=== PATIENT | female | born 1985 | race Caucasian/White ===

== ENCOUNTER → 2020-02-23 14:13 | Outpatient (CLI) | payer OTHER, SELFPAY ==
--- NOTE | ~2020-02-23 | US_ITS ---
EXAMINATION: US axilla RT INDICATION: Right axillary mass TECHNIQUE: Targeted ultrasound of the right axilla was performed. COMPARISON: None available FINDINGS: No suspicious cystic or solid mass is identified in the area of clinical concern. IMPRESSION: 1. No specific sonographic correlate is identified for the reported palpable abnormality of concern. Further evaluation at this time should be based on clinical assessment. Continued follow-up physical examination is recommended. BI-RADS Category 1: Negative Reviewed, dictated and finalized at location A. IMPRESSION: 1. No specific sonographic correlate is identified for the reported palpable ab normality of concern. Further evaluation at this time should be based on clinic al assessment. Continued follow-up physical examination is recommended. BI-RADS Category 1: Negative
== END ==
PROVIDERS: PCP Family Medicine; Visit Provider Nurse Practitioner
DX: R22.30 Localized swelling, mass and lump, unspecified upper limb (principal)
CPT/HCPCS: 76882

== ENCOUNTER 2020-05-19 08:36 | Outpatient (CLI) | payer OTHER, SELFPAY ==
[2020-05-19 09:12] LABS: Add Urine Microscopic? YES; Appearance Urine Clear (Clear); Bacteria Urine Trace /hpf; Bilirubin Urine Negative (Negative); Blood Urine 1+ (Negative); Color Urine Colorless (Yellow); Glucose Urine UA Negative (Negative); Ketones Urine Negative (Negative); Leukocyte Esterase Ur Negative LEU/UL (Negative); Mucus Urine Rare /lpf; Nitrate Urine Negative (Negative); Protein Urine Negative (Negative); RBC Urine 0-2 /hpf (0-2); Squamous Epithelial Cell Urine Occasional /hpf (Few); Urobilinogen Urine Negative mg/dL (<2.0); WBC Urine 0-3 /hpf
[2020-05-19 09:13] LABS: Specific Grav Ur 1.004 (1.001-1.035)
[2020-05-19 09:16] LABS: Prothrombin Time 13.2 Seconds (11.1-14.7)
[2020-05-19 09:17] LABS: Cholesterol 147 mg/dL (0-200); HDL Direct 65 mg/dL; Partial Thromboplastin Time 27.5 SECONDS (22.3-36.8); Triglycerides 48 mg/dL (<150)
[2020-05-19 09:28] LABS: LDL Cholesterol Direct 71 mg/dL
[2020-05-19 09:48] LABS: Thyroid Stimulating Hormone 0.285 uIU/mL (0.465-4.680)
[2020-05-19 10:00] LABS: Iron 146 ug/dL (37-170)
[2020-05-19 10:10] LABS: Percent Iron Saturation 45 % (20-50)
[2020-05-19 10:33] LABS: Free T4 Free Thyroxine 0.88 ng/mL (0.78-2.19); Vitamin D 25 Hydroxy 54.1 ng/mL
[2020-05-21 04:56] LABS: C-Peptide 2.13 ng/mL (0.80-3.85); Progesterone 11.5 ng/mL (***); Triiodothyronine T3 Free 2.7 pg/mL (2.3-4.2)
[2020-05-23 10:59] LABS: T3 Reverse 19 ng/dL (8-25)
== END 2020-05-19 08:37 | disposition home or self-care (01) ==
PROVIDERS: PCP Family Medicine; Visit Provider Family Medicine
DX: F32.9 Major depressive disorder, single episode, unspecified (principal); F98.8 Other specified behavioral and emotional disorders with onset usually occurring in childhood and adolescence; G25.81 Restless legs syndrome; G44.009 Cluster headache syndrome, unspecified, not intractable; M54.5 Low back pain; M79.2 Neuralgia and neuritis, unspecified; R10.13 Epigastric pain; Z79.899 Other long term (current) drug therapy; Z82.62 Family history of osteoporosis
CPT/HCPCS: 36415; 80061; 81001; 82306; 83001; 83540; 83550; 84144; 84439; 84443; 84481; 84482; 84681; 85610; 85730

== ENCOUNTER 2020-06-09 08:09 | Outpatient (CLI) | payer OTHER, SELFPAY ==
[2020-06-09 08:25] LABS: Basophils Percent Auto 0.5 % (0.2-1.2); Eosinophils Absolute Auto 0.2 K/mm3 (0-0.3); Eosinophils Percent Auto 1.9 % (0-4.4); Hematocrit 39.3 % (37.0-47.0); Hemoglobin 13.5 g/dL (12.0-15.0); Immature Granulocyte Absolute 0.02 K/mm3 (0.00-0.031); Immature Granulocyte Percent A 0.2 % (0-0.5); Lymphocytes Absolute Auto 1.97 K/mm3 (0.9-3.2); Lymphocytes Percent Auto 24.5 % (18.3-44.2); Mean Corpuscular HGB Conc 34.4 g/dl (32-36); Mean Corpuscular Hemoglobin 32.6 pg (26-34); Mean Corpuscular Volume 94.9 fl (80-100); Mean Platelet Volume 10.4 fl (7.4-10.4); Monocytes Absolute Auto 0.6 K/mm3 (0.1-0.6); Monocytes Percent Auto 7.1 % (2.6-8.5); Neutrophils Absolute Auto 5.3 K/mm3 (1.3-6.7); Neutrophils Percent Auto 65.8 % (45.5-73.1); Platelet Count Result 179 k/mm3 (150-375); Red Blood Count 4.14 M/mm3 (4.2-5.4); Red Cell Distribution Width 12.4 % (11.5-14.5)
[2020-06-09 08:43] LABS: Alanine Aminotransferase 15 U/L (4-35); Alkaline Phosphatase 42 U/L (38-126); Aspartate Amino Transferase 21 U/L (14-36); Bilirubin,Total 0.2 mg/dL (0.2-1.3); Blood Urea Nitrogen 19 mg/dL (7-17); CRP < 0.5 mg/dL (<1.0); Calcium 8.5 mg/dL (8.4-10.2); Carbon Dioxide 23 mmol/L (22-30); Chloride 105 mmol/L (98-107); Estimated Glomerular Filt Rate > 60; Glucose 87 mg/dL (65-105); Sodium 136 mmol/L (137-145)
[2020-06-09 09:46] LABS: Folic Acid 6.2 ng/mL (2.76->20)
[2020-06-13 04:28] LABS: CA-125 12 U/mL (<35)
== END 2020-06-09 08:10 | disposition home or self-care (01) ==
LOC: ANHLAB 08:10
PROVIDERS: PCP Family Medicine; Visit Provider Family Medicine
DX: F32.9 Major depressive disorder, single episode, unspecified (principal); F98.8 Other specified behavioral and emotional disorders with onset usually occurring in childhood and adolescence; G44.009 Cluster headache syndrome, unspecified, not intractable; M54.5 Low back pain; M79.2 Neuralgia and neuritis, unspecified; R10.13 Epigastric pain; Z79.899 Other long term (current) drug therapy; Z82.62 Family history of osteoporosis
CPT/HCPCS: 36415; 80053; 82607; 82746; 85025; 86140; 86304

== ENCOUNTER 2020-06-21 17:12 | Outpatient (CLI) | payer OTHER, SELFPAY ==
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
== END 2020-06-21 17:13 | disposition home or self-care (01) ==
PROVIDERS: PCP Family Medicine; Visit Provider Family Medicine
DX: M54.5 Low back pain (principal); W19.XXXA Unspecified fall, initial encounter; M47.816 Spondylosis without myelopathy or radiculopathy, lumbar region
CPT/HCPCS: 72114; 72220

== ENCOUNTER 2024-09-12 10:00 | Emergency (ER) | payer OTHER, SELFPAY ==
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
[2024-09-12 10:09] VITALS: BP 124/88; PULSE 88; RESP 14; TEMP 36.4; O2SAT 100
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
--- NOTE | 2024-09-12 10:17 | PC.NURSE ---
1014: LISANDRA nurse contacted by ED Charge Amanda Broderick 1015: Naya RN contacted [facility]
[2024-09-12] MEDS: metroNIDAZOLE 500 MG TABLET PO (13:23)
[2024-09-12] MEDS: DOXYCYCLINE HYCLATE 100 MG TABLET PO (13:23)
[2024-09-12] MEDS: ONDANSETRON INJ 4 MG/2 ML VIAL IV PUSH (13:24)
[2024-09-12] MEDS: KETOROLAC 15 MG/ML VIAL (*BKC) IV PUSH (13:26)
[2024-09-12] MEDS: TETANUS,DIPHTHERIA,AC PERTUSSIS ADULT (0.5 ML) BOOSTRIX IM (13:28)
[2024-09-12] MEDS: cefTRIAXone 1 GM VIAL 0.5 GM IM (13:32)
[2024-09-12 13:43] LABS: Estimated CRCL calculation 99 ml/min; Estimated Glomerular Filt Rate > 60
[2024-09-12 13:44] LABS: Basophils Absolute Auto 0.1 K/mm3 (0.0-0.1); Basophils Percent Auto 0.4 % (0.2-1.2); Eosinophils Absolute Auto 0.1 K/mm3 (0-0.3); Eosinophils Percent Auto 0.8 % (0-4.4); Hematocrit 40.2 % (37.0-47.0); Hemoglobin 13.6 g/dL (12.0-15.0); Immature Granulocyte Absolute 0.03 K/mm3 (0.00-0.031); Immature Granulocyte Percent A 0.3 % (0-0.5); Lymphocytes Absolute Auto 3.03 K/mm3 (0.9-3.2); Lymphocytes Percent Auto 25.7 % (18.3-44.2); Mean Corpuscular HGB Conc 33.8 g/dl (32-36); Mean Corpuscular Hemoglobin 32.2 pg (26-34); Mean Corpuscular Volume 95.3 fl (80-100); Mean Platelet Volume 10.1 fl (7.4-10.4); Monocytes Absolute Auto 0.6 K/mm3 (0.1-0.6); Monocytes Percent Auto 4.9 % (2.6-8.5); Neutrophils Percent Auto 67.9 % (45.5-73.1); Platelet Count Result 209 k/mm3 (150-375); Red Blood Count 4.22 M/mm3 (4.2-5.4); Red Cell Distribution Width 12.4 % (11.5-14.5); White Blood Count 11.8 K/mm3 (4.5-10.0)
[2024-09-12] MEDS: LIDOCAINE HCL 1% LOCAL INJ 10 ML VIAL (13:45)
[2024-09-12 13:55] LABS: Alanine Aminotransferase 16 U/L (6-35); Alkaline Phosphatase 59 U/L (38-126); Anion Gap 6 mmol/L (4-12); Aspartate Amino Transferase 19 U/L (14-36); Bilirubin,Total 0.6 mg/dL (0.2-1.3); Blood Urea Nitrogen 10 mg/dL (7-17); Calcium 8.6 mg/dL (8.4-10.2); Carbon Dioxide 31 mmol/L (22-30); Chloride 100 mmol/L (98-107); Estimated CRCL calculation 99 ml/min; Estimated Glomerular Filt Rate > 60; Glucose 81 mg/dL (65-110); Potassium 3.5 mmol/L (3.4-5.0); Sodium 137 mmol/L (137-145)
[2024-09-12 13:59] LABS: Prothrombin Time 13.3 Seconds (11.1-14.7)
[2024-09-12 14:00] LABS: Partial Thromboplastin Time 29.3 Seconds (22.3-36.8)
[2024-09-12 14:17] LABS: Rapid Plasma Reagin Non-Reactive (NonReactive)
[2024-09-12 14:35] LABS: Hepatitis B Surface Antigen Negative (Negative)
[2024-09-12 14:40] LABS: Hepatitis B Core IgM Result Negative (Negative)
[2024-09-12 14:44] LABS: HIV 1/2 Ab P24 Ag Result Negative (Negative)
[2024-09-12 14:50] LABS: Trichomonas Vag PCR NOT DETECTED (NOT DETECTE)
[2024-09-12 14:57] LABS: Hepatitis B Surface Anti Res Positive
[2024-09-12 15:13] LABS: Chlamydia trachomatis NOT DETECTED (NOT DETECTE); Neisseria gonorrhoeae PCR NOT DETECTED (NOT DETECTE)
[2024-09-12 15:51] VITALS: BP 112/87; PULSE 81; RESP 15; TEMP 36.4; O2SAT 98
[2024-09-13 09:28] LABS: Hepatitis B Core Ab Total NON-REACTIVE (NON-REACTIVE)
== END 2024-09-12 15:54 | disposition home or self-care (01) ==
LOC: ANHED 15:16
PROVIDERS: Emergency Provider Physician Assistant; PCP Nurse Practitioner
DX: T74.21XA Adult sexual abuse, confirmed, initial encounter (principal); Y07.030 Male partner, current, perpetrator of maltreatment and neglect; Z23 Encounter for immunization; F98.8 Other specified behavioral and emotional disorders with onset usually occurring in childhood and adolescence; F32.A Depression, unspecified; F17.210 Nicotine dependence, cigarettes, uncomplicated; Z79.899 Other long term (current) drug therapy
CPT/HCPCS: 36415; 70496; 70498; 72131; 80053; 85025; 85610; 85730; 86592; 86703; 86704; 86705; 86706; 87340; 87491; 87591; 87661; 90471; 90715; 96372; 96374; 96375; 99285; A9270; G0432; J0696; J1885; J2003; J2405; Q9967